=== PATIENT | male | born 2000 | race Caucasian/White ===

== ENCOUNTER 2024-07-04 09:03 | Outpatient (CLI) | payer SELFPAY | END 2024-07-04 09:04 | disposition home or self-care (01) | LOC: LKVREF 09:04 | PROVIDERS: PCP Physician Assistant Medical; Visit Provider Physician Assistant Medical | DX: R07.89 Other chest pain (principal); Z13.0 Encounter for screening for diseases of the blood and blood-forming organs and certain disorders involving the immune mechanism; Z82.49 Family history of ischemic heart disease and other diseases of the circulatory system | CPT/HCPCS: 80061 ==

== ENCOUNTER 2024-08-09 09:47 | Outpatient (CLI) | payer BC, SELFPAY | END 2024-08-09 09:48 | disposition home or self-care (01) | LOC: RAD 09:49 | PROVIDERS: PCP Physician Assistant Medical; Visit Provider Physician Assistant Medical | DX: Z82.49 Family history of ischemic heart disease and other diseases of the circulatory system (principal); I35.1 Nonrheumatic aortic (valve) insufficiency | CPT/HCPCS: 93306 ==